=== PATIENT | female | born 1985 | race Caucasian/White ===

== ENCOUNTER 2023-04-21 15:19 | Outpatient (CLI) | payer SELFPAY | END 2023-04-21 15:20 | disposition home or self-care (01) | PROVIDERS: PCP Family Medicine; Visit Provider Family Medicine | DX: Z00.00 Encounter for general adult medical examination without abnormal findings (principal); R53.83 Other fatigue; E66.9 Obesity, unspecified; Z13.6 Encounter for screening for cardiovascular disorders; R73.01 Impaired fasting glucose; F41.9 Anxiety disorder, unspecified | CPT/HCPCS: 80053; 80061; 84443 ==

== ENCOUNTER 2023-09-29 11:15 | Outpatient (REF) | payer OTHER, SELFPAY ==
[2023-10-01 05:38] LABS: Cardiolipin Antibody IgA <10 APL (<=11); Cardiolipin Antibody IgG <10 GPL (<=14); Cardiolipin Antibody IgM <10 MPL (<=12)
== END 2023-09-29 11:16 | disposition home or self-care (01) ==
LOC: NPINS 11:15
PROVIDERS: PCP Family Medicine
DX: I63.9 Cerebral infarction, unspecified (principal)
CPT/HCPCS: 86147

== ENCOUNTER 2023-10-16 14:41 | Outpatient (CLI) | payer OTHER, SELFPAY | END 2023-10-16 14:42 | disposition home or self-care (01) | LOC: NFLDREF 14:42 | PROVIDERS: PCP Family Medicine; Visit Provider Family Medicine | DX: Z87.74 Personal history of (corrected) congenital malformations of heart and circulatory system (principal) | CPT/HCPCS: 80048 ==

== ENCOUNTER 2024-09-16 08:25 | Outpatient (CLI) | payer OTHER, SELFPAY | END 2024-09-16 08:26 | disposition home or self-care (01) | PROVIDERS: PCP Registered Nurse; Visit Provider Registered Nurse | DX: E66.01 Morbid (severe) obesity due to excess calories (principal); F41.9 Anxiety disorder, unspecified; Z13.6 Encounter for screening for cardiovascular disorders | CPT/HCPCS: 80053; 80061; 84443 ==

== ENCOUNTER 2024-12-07 08:15 | Outpatient (CLI) | payer OTHER, SELFPAY ==
--- NOTE | 2024-12-07 08:15 | CRLHL7_ITS ---
For Patients: As a result of the Century Cures Act, medical imaging exams and procedure reports are released immediately into your electronic medical record. You may view this report before your referring provider. If you have questions, please contact your health care provider. INDICATION: BILATERAL SCREENING MAMMOGRAM, ASYMPTOMATIC 38 Y/O FEMALE COMPARISON: Baseline TECHNIQUE: CC and MLO views were obtained. These mammographic images have been obtained using full-field digital technique. These mammographic images were interpreted with the benefit of computer aided detection and tomosynthesis. BREAST COMPOSITION: The breasts are almost entirely fatty. FINDINGS: No suspicious findings. ASSESSMENT: BI-RADS 2 Benign RECOMMENDATION: Annual screening mammogram. A lay language report of this examination will be provided to the patient. Dictated by: Jamie Kaufman MD @ 12/07/2024 09:53:50 (Electronically Signed)
== END 2024-12-07 08:16 | disposition home or self-care (01) ==
LOC: MAMMO 08:16
PROVIDERS: PCP Registered Nurse; Visit Provider Registered Nurse
DX: Z12.31 Encounter for screening mammogram for malignant neoplasm of breast (principal)
CPT/HCPCS: 77063; 77067